=== PATIENT | female | born 1970 | race Caucasian/White ===

== ENCOUNTER 2017-10-27 08:33 | Day surgery (SDC) | payer BC, OTHER ==
[2017-10-26 11:06] VITALS: BMI 29.2
[2017-10-27] MEDS ORDERED: LIDOCAINE 1%/EPI 1:100000 (20 ML MULTI DOSE VIAL) ONE (10:20)
[2017-10-27] MEDS ORDERED: DEXAMETHASONE SOD PHOSPHATE 4 MG/1 ML VIAL ONE ×2 (10:20→11:03)
[2017-10-27] MEDS ORDERED: LIDOCAINE HCL 1%, 10 MG/ML (20ML VIAL) ONE (10:21)
[2017-10-27] MEDS ORDERED: BUPIVACAINE HCL/PF 0.5% (5MG/ML) 10 ML VIAL ONE (10:21)
[2017-10-27] MEDS ORDERED: MIDAZOLAM HCL 2 MG/2 ML SINGLE DOSE VIAL ONE ×3 (10:47→10:54)
[2017-10-27] MEDS ORDERED: SUCCINYLCHOLINE CHLORIDE 200 MG/10 ML VIAL ONE (10:49)
[2017-10-27] MEDS ORDERED: PROPOFOL 20 ML ONE (10:49)
[2017-10-27] MEDS ORDERED: ceFAZolin SODIUM 1 GM VIAL IVPB ONE (10:55)
[2017-10-27] MEDS ORDERED: KETOROLAC TROMETHAMINE 30 MG/1 ML VIAL ONE (11:03)
[2017-10-27] MEDS ORDERED: ceFAZolin SODIUM 1 GM VIAL ONE (11:03)
[2017-10-27] MEDS ORDERED: LIDOCAINE HCL/PF 2% SDV 5ML VIAL ONE (11:03)
[2017-10-27] MEDS ORDERED: BUPIVACAINE HCL/PF 0.5% (5MG/ML) 10 ML VIAL IJ ONE ×2 (11:14→12:04)
[2017-10-27] MEDS ORDERED: BACITRACIN 50,000 UNITS VIAL TP ONE (11:14)
[2017-10-27] MEDS ORDERED: LIDOCAINE HCL 1%, 10 MG/ML (20ML VIAL) INF ONE (11:14)
[2017-10-27] MEDS ORDERED: DEXAMETHASONE SOD PHOSPHATE 4 MG/1 ML VIAL IM ONE (12:04)
[2017-10-27] MEDS ORDERED: ACETAMINOPHEN WITH CODEINE 300MG/30MG TABLET PO PRN (12:16)
[2017-10-27 13:20] VITALS: TEMP 97.8
[2017-10-27 14:28] VITALS: BP 115/54; PULSE 58
--- NOTE | 2017-10-31 15:36 | PATH ---
Surgical Pathology Report Patient Name: DANILO TALLEY [facility]. Rec. #: [id number] /Age/Gender: 1970 (Age: 47) / F Account: [id number] Location: [facility] Taken: 10/27/2017 Received: 10/27/2017 Reported: 10/31/2017 Physicians: Gena Miles DPM Specimen(s) Received LEFT FOOT BONE Clinical History Left foot bunion Final Diagnosis BONE, FOOT, LEFT, BUNIONECTOMY: BONE WITH DEGENERATIVE CHANGES AND DENSE FIBROUS CONNECTIVE TISSUE. Electronically Signed Janeth Lanza M.D. Gross Description Received in formalin labeled "left foot bone," is a 2.7 x 2.5 x 0.3 cm aggregate of brown, irregular to fragmented portions of bone and soft tissue. Transportation Specialist sections are submitted in one cassette, following decalcification. /10/28/2017 [facility]10/28/2017
--- NOTE | 2017-11-09 11:12 | OP ---
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 POSTOPERATIVE DIAGNOSIS: Hallux abductovalgus bunion deformity of left foot and tailor bunion deformity of left 5th metatarsophalangeal. OPERATION: Left foot Antony bunionectomy, long arm, and left foot tailor bunionectomy. ANESTHESIA: MAC with local. SURGEONS: Gena Miles DPM FRAME FIXER: Miguel Angel mittal HEMOSTASIS: Pneumatic ankle tourniquet for 50 minutes. ESTIMATED BLOOD LOSS: 5 mL. MATERIALS: Two screws, 3-mm x 14-mm partially threaded screw, and 3-mm x 16-mm partially threaded screw. PATHOLOGY: Bone and soft tissue. OPERATIVE PROCEDURE: The patient was brought to the operating room and placed on the operating table in the supine position. A pneumatic ankle tourniquet was then placed on the patient's left ankle. Following MAC, IV sedation, local anesthetic was obtained utilizing 1 mL of lidocaine 2% plain. The foot was then scrubbed, prepped, and draped in the usual aseptic manner. An Esmarch bandage was then used to exsanguinate the patient's left foot and the tourniquet was then inflated. Attention was then directed to the left foot. A portion of the incision was made dorsomedially over the 1st metatarsophalangeal joint down to the EHL tendon. The incision was deepened through subcutaneous tissue, retracting all neurovascular structures. Liberating the head of the metatarsal. Following this, a McGlamry elevator was used to release soft tissue and sessamoids. Attention was then directed to the dorsum of the 1st metatarsophalangeal joint. The capsule was visualized and inverted and a capsulotomy was performed. The capsule was reflected. The 1st metatarsal joint was visualized and the joint was inspected. Flattening of the tarsal head was noticed, although the articular surface of the joint seemed to be intact and healthy. Prominent medial bone shelf was clearly visualized and then was resected using sagittal bone saw. Using bone saw, Antony long arm bunionectomy was performed on the head of the 1st metatarsal at the apex point distally. The capsule fragment was shifted to the more corrected position and bunion deformity appeared much improved. A 0.62 K-wire was then driven across the osteotomy for temporary fixation. A paragon 28 14-mm partially threaded screw and a 16-mm partially threaded screw were placed. The K-wire was removed. All rough edges were resected and edges remodeled using a destini. The toe was put through range of motion and noted to have excellent motion. Attention was then directed to the first MTPJ. Then the capsule was reapproximated and after capsulorrhaphy procedure was done using 2-0 Vicryl stitch suture. The remaining soft tissue was closed in layers using a combination of 3-0 and 4-0 Vicryl suture and the skin was closed using 5-0 vicryl in a subcuticular fashion. Attention was then directed to the left lateral 5th metatarsal head where a linear longitudinal incision was made. This incision was deepened through blunt and sharp dissection. Care was taken to avoid major neurovascular structures through the dissection. The incision was carried to the level of the 5th metatarsal head, where it was noted that there was a lateral and dorsal prominence of the head of the 5th metatarsal. At this time an ostectomy of the metatarsal head dorsally and laterally with no osteotomy was performed. It was noted intraoperatively that the deformity was improved. The wound was then flushed with copious amount of sterile saline with added antibiotic. closure was done using 3-0 and 4-0 vicryl for sucutnaneous closure and 5.0 for subcuticular closure for skin. Upon completion of procedure, a total of 8cc of 0.5% Marcaine and 2cc of dexamethasone were infiltrated at the surgical site. The incisions were dressed with 4 x 4's, Adaptic and a sterile compressive dressing. The ankle tourniquet was deflated and immediate hyperemia returned to all toes. The patient tolerated the procedure well and was transferred to the recovery room with all vital signs stable and vascularly status intact. LISA Yoder/[id number] SHRUTHI
== END 2017-10-27 14:00 | disposition home or self-care (01) ==
LOC: JASU-SURG 08:33
PROVIDERS: ATTEND Podiatrist Foot Surgery
PROC: 0QBP0ZZ Excision of Left Metatarsal, Open Approach (ICD-10-PCS; 2017-10-27)
PROC: 0QBR0ZZ Excision of Left Toe Phalanx, Open Approach (ICD-10-PCS; principal; 2017-10-27 10:00)
DX: M20.12 Hallux valgus (acquired), left foot (principal); M21.622 Bunionette of left foot; M21.612 Bunion of left foot
CPT/HCPCS: 73630-TC-LT; 84703; 88304-TC; 88311-TC

== ENCOUNTER 2018-01-19 09:54 | Day surgery (SDC) | payer BC, OTHER ==
[2018-01-17 14:45] VITALS: BMI 29.2
[2018-01-19] MEDS ORDERED: ACETAMINOPHEN 500 MG TABLET (FP) PO PRN (13:00)
[2018-01-19] MEDS ORDERED: ONDANSETRON 4 MG/2 ML VIAL IVPUSH PRN (13:00)
[2018-01-19] MEDS ORDERED: LACTATED RINGERS SOLUTION 1,000 ML IV SCH (13:00)
[2018-01-19] MEDS ORDERED: oxyCODONE HCL 5 MG TABLET PO PRN (13:00)
[2018-01-19] MEDS ORDERED: ceFAZolin SODIUM 1 GM VIAL ONE (13:13)
[2018-01-19] MEDS ORDERED: PROPOFOL 20 ML ONE ×2 (13:13→14:40)
[2018-01-19] MEDS ORDERED: KETOROLAC TROMETHAMINE 30 MG/1 ML VIAL ONE (13:13)
[2018-01-19] MEDS ORDERED: MIDAZOLAM HCL 2 MG/2 ML SINGLE DOSE VIAL ONE (13:14)
[2018-01-19] MEDS ORDERED: DEXAMETHASONE SOD PHOSPHATE 4 MG/1 ML VIAL ONE ×2 (13:56→14:13)
[2018-01-19] MEDS ORDERED: ceFAZolin SODIUM 1 GM VIAL IVPB ONE (14:09)
[2018-01-19] MEDS ORDERED: BUPIVACAINE HCL/PF 0.5% (5MG/ML) 10 ML VIAL PNB ONE (14:31)
[2018-01-19] MEDS ORDERED: LIDOCAINE HCL 1%, 10 MG/ML (20ML VIAL) PNB ONE (14:46)
--- NOTE | 2018-01-19 16:15 | OP ---
Operative Note - Note: Operative Date: 01/19/18 Pre-Operative Diagnosis: Bunion and tailors bunion right Operation: cecile bunionectomy 2.4mm screw fixation partially threaded screw. tailors bunionectomy right foot Findings: hyupertrophic bone and sof tissue Implants: 2.4mm osteomed lag screw Surgeon: Gena Miles Oncology Patient Navigator: Miguel Angel Casiano Anesthesia: Local, MAC Specimens Removed: bone, soft tissue Estimated Blood Loss (mls): 10 Operative Report Dictated: Yes
--- NOTE | 2018-01-19 17:19 | OP ---
DATE OF OPERATION: 01/19/2018 SURGEON: Gena Miles DPM UX ENGINEER: Ami Montana, PGY-2 PREPROCEDURE DIAGNOSES: Right painful hallux abducto valgus and right painful Tailor bunion. POSTPROCEDURE DIAGNOSES: Right painful hallux abducto valgus and right painful Tailor bunion. PROCEDURE: 1. Right Antony bunionectomy. 2. Tailor bunionectomy. DESCRIPTION OF PROCEDURE: The patient was brought into the operating room and placed on the operating table in the supine position achieving IV anesthesia 20 mL of a mixture of 1:1 of lidocaine plain 1% and Marcaine plain 0.5% were injected to the right foot. An ankle tourniquet was then applied to the right ankle. The foot was then scrubbed, prepped, and draped in the usual aseptic manner. Attention was directed to the right first metatarsophalangeal joint where a linear longitudinal incision was made extending from the neck of the first metatarsal through the head of the base of the proximal phalanx of the hallux. Care was taken throughout dissection to avoid damage to the neurovasculature and tendinous structures. Incision was deepened via sharp dissection to the level of the capsule, and the capsule was incised in a T-type fashion, and the capsular structures were reflected. He then applied sterile elevator. The periosteum of the head of the first metatarsal was also reflected, and using the McGlamry elevator, the plantar structures were also freed from the metatarsal head. Attention was then directed to the medial aspect of the first metatarsal head where a medial prominence was noted which was resected using a sagittal saw. Next, a Chevron osteotomy was made in a V-type fashion to the metatarsal head with the apex of the V being at the thickest portion of the metatarsal head and with the sagittal saw the distal fragment was then shifted laterally until adequate correction and the intermetatarsal angle was noted. Care was then used to hold osteotomy temporarily, and a screw was placed using standard lag technique to permanently fixate the osteotomy. Using the sagittal saw, the medial shelf was then resected, and a destini was used to smooth down all remaining bony prominences. The capsule was closed with 3-0 Vicryl, and subcutaneous tissues were then closed with 4-0 Vicryl and 5-0 Vicryl. Skin was then closed with benzoin tincture, Steri-Strips, and then attention was then directed to the fifth toe where a Tailor bunion was noted to the fifth metatarsophalangeal joint. A separate incision was made extending from the fifth metatarsal neck to the base of the fifth proximal phalanx. Incision was deepened through sharp and blunt dissection, and care was taken to avoid damage to the neurovascular structures throughout the dissection. The incision was carried down to the level of the fifth metatarsal head where it was noted that there was a lateral prominence which was resected using a sagittal saw. Once the lateral prominence was resected, an adequate reduction of the Tailor bunion was noted, and the capsule was closed with 3-0 Vicryl, and subcutaneous tissues were closed with 4-0 Vicryl and 5-0 Vicryl. Skin was then closed with benzoin tincture, Steri-Strips, and the foot was then dressed with Betadine-soaked Adaptic. Postoperative injection consisting of dexamethasone and Marcaine plain 0.5% was then injected into the right foot. The foot was then dressed further with 4 x 8 gauze, 4 x 4 gauze, Nuria, and Rancho wrap. The patient tolerated the procedure well and the anesthesia well and transferred from the OR to the PACU with vital signs stable and neurovascular status intact to her right foot. Ami Montana, PGY-2 dictating for LISA Yoder DPM [id number]
[2018-01-19 17:48] VITALS: BP 140/79; PULSE 78; TEMP 97.8
--- NOTE | 2018-01-23 12:22 | PATH ---
Surgical Pathology Report Patient Name: DANILO TALLEY [facility]. Rec. #: [id number] /Age/Gender: 1970 (Age: 47) / F Account: [id number] Location: [facility] SUR[facility] Taken: 01/19/2018 Received: 01/20/2018 Reported: 01/23/2018 Physicians: Gena Miles DPM Specimen(s) Received BONE AND SOFT TISSUE FROM RIGHT FOOT Clinical History Right foot bunionectomy Final Diagnosis BONE AND SOFT TISSUE, FOOT, RIGHT, BUNIONECTOMY: BONE WITH DEGENERATIVE CHANGES, CARTILAGE, AND DENSE FIBROCONNECTIVE TISSUE. Electronically Signed Janeth Lanza M.D. Gross Description Received in formalin labeled "bone and soft tissue right foot," is a 3.5 x 2.2 x 0.3 cm aggregate of multiple fragments of bone and soft tissue. A field sales representative portion is submitted in one cassette, following decalcification. /01/20/2018 [place]/01/20/2018
== END 2018-01-19 17:45 | disposition home or self-care (01) ==
LOC: JASU-SURG 09:54
PROVIDERS: ATTEND Podiatrist Foot Surgery
PROC: 0QBQ0ZZ Excision of Right Toe Phalanx, Open Approach (ICD-10-PCS; 2018-01-19)
PROC: 0QBN0ZZ Excision of Right Metatarsal, Open Approach (ICD-10-PCS; principal; 2018-01-19 11:00)
DX: M21.621 Bunionette of right foot (principal); M20.11 Hallux valgus (acquired), right foot
CPT/HCPCS: 73630-TC-RT-FY; 84703; 88304-TC; 88311-TC; 94760